=== PATIENT | male | born 1995 | race Caucasian/White ===

== ENCOUNTER 2019-11-23 17:35 | Emergency (ER) | payer MEDICAID, SELFPAY ==
[2019-11-23 18:44] LABS: Absolute Lymphocytes (CBC) 1.3 K/uL (0.7-4.9); Basophils % 0.4 % (0-1.3); Hematocrit 48.6 % (39.6-49.0); Lymphocytes % 17.2 % (15.3-44.8); MPV 8.6 fL (7.6-11.3); RBC Red Blood Cell Count 6.05 M/uL (4.33-5.43)
[2019-11-23 18:47] LABS: Protime INR 1.09
[2019-11-23 18:51] LABS: Urine Blood TRACE (NEG); Urine Glucose NEGATIVE (NEG); Urine Protein NEGATIVE (NEG); Urine Specific Gravity 1.025 (1.005-1.030)
[2019-11-23 18:59] LABS: ALT/SGPT 26 U/L (12-78); AST/SGOT 17 U/L (15-37); Albumin 5.2 g/dL (3.4-5.0); Alkaline Phosphatase 91 U/L (45-117); BUN Blood Urea Nitrogen 15 mg/dL (7-18); Bicarbonate 29 mmol/L (21-32); Bilirubin Direct 0.4 mg/dL (0-0.2); Glucose Level 115 mg/dL (74-106); Magnesium 2.3 mg/dL (1.8-2.4); NT PRO-BNP 6 pg/mL (<125); Potassium 3.9 mmol/L (3.5-5.1); Protein, Total 9.2 g/dL (6.4-8.2); Sodium Level 138 mmol/L (136-145); Troponin (Emerg Dept Use Only) < 0.02 ng/mL (0.0-0.045)
[2019-11-23 19:07] LABS: Barbiturates NEGATIVE (NEGATIVE); Benzodiazepines NEGATIVE (NEGATIVE); Cocaine NEGATIVE (NEGATIVE); METHAMPHETAM NEGATIVE (NEGATIVE); Methadone NEGATIVE (NEGATIVE); Opiates NEGATIVE (NEGATIVE); Phencyclidine NEGATIVE (NEGATIVE); THC Cannibis NEGATIVE (NEGATIVE)
--- NOTE | 2019-11-23 19:10 | RAD REPORT ---
EXAM DESCRIPTION: RAD - Chest Single View - 11/23/2019 6:29 pm CLINICAL HISTORY: CHEST PAIN Chest pain. COMPARISON: No comparisons FINDINGS: Portable technique limits examination quality. The lungs are grossly clear. The heart is normal in size. No displaced fractures. IMPRESSION: No acute intrathoracic process suspected.
--- NOTE | 2019-11-23 19:12 | EDPHYS ---
Physician Documentation [facility] Name: Jeffy More Age: 23 yrs Sex: Male : 1995 Arrival Date: 11/23/2019 Time: 17:37 Bed 25 Private MD: SHANTANU Physician Mathew Cox HPI: 11/22 18:47 This 23 yrs old Male presents to ER via Ambulatory with complaints of Chest adebayo Pain. 18:47 The patient or guardian reports chest pain that is located primarily in the anterior adebayo chest wall, bilaterally. The pain does not radiate. Associated signs and symptoms: The patient has no apparent associated signs or symptoms. The chest pain is described as a pressure. Duration: The patient or guardian reports multiple episodes, with no pattern. Modifying factors: The symptoms are alleviated by nothing. the symptoms are aggravated by nothing. Severity of pain: At its worst the pain was mild in the emergency department the pain is unchanged. The patient has not experienced similar symptoms in the past. Historical: - Allergies: 17:47 PENICILLINS; iw - Home Meds: 17:47 None [Active]; iw - PMHx: 17:47 None; iw - PSHx: 17:47 None; iw - Immunization history:: Adult Immunizations not up to date. - Social history:: Smoking status: Patient denies any tobacco usage or history of. - Family history:: not pertinent. ROS: 18:47 Constitutional: Negative for fever, chills, and weight loss, Eyes: Negative for injury, adebayo pain, redness, and discharge, ENT: Negative for injury, pain, and discharge, Neck: Negative for injury, pain, and swelling, Respiratory: Negative for shortness of breath, cough, wheezing, and pleuritic chest pain, Abdomen/GI: Negative for abdominal pain, nausea, vomiting, diarrhea, and constipation, Back: Negative for injury and pain, : Negative for injury, bleeding, discharge, and swelling, MS/Extremity: Negative for injury and deformity, Skin: Negative for injury, rash, and discoloration, Neuro: Negative for headache, weakness, numbness, tingling, and seizure, Psych: Negative for depression, anxiety, suicide ideation, homicidal ideation, and hallucinations, Allergy/Immunology: Negative for hives, rash, and allergies, Endocrine: Negative for neck swelling, polydipsia, polyuria, polyphagia, and marked weight changes, Hematologic/Lymphatic: Negative for swollen nodes, abnormal bleeding, and unusual bruising. 18:47 Cardiovascular: Positive for chest pain, of the chest. Exam: 18:47 Constitutional: This is a well developed, well nourished patient who is awake, alert, adebayo and in no acute distress. Head/Face: Normocephalic, atraumatic. Eyes: Pupils equal round and reactive to light, extra-ocular motions intact. Lids and lashes normal. Conjunctiva and sclera are non-icteric and not injected. Cornea within normal limits. Periorbital areas with no swelling, redness, or edema. ENT: Nares patent. No nasal discharge, no septal abnormalities noted. Tympanic membranes are normal and external auditory canals are clear. Oropharynx with no redness, swelling, or masses, exudates, or evidence of obstruction, uvula midline. Mucous membranes moist. Neck: Trachea midline, no thyromegaly or masses palpated, and no cervical lymphadenopathy. Supple, full range of motion without nuchal rigidity, or vertebral point tenderness. No Meningismus. Chest/axilla: Normal chest wall appearance and motion. Nontender with no deformity. No lesions are appreciated. Cardiovascular: Regular rate and rhythm with a normal S1 and S2. No gallops, murmurs, or rubs. Normal PMI, no JVD. No pulse deficits. Respiratory: Lungs have equal breath sounds bilaterally, clear to auscultation and percussion. No rales, rhonchi or wheezes noted. No increased work of breathing, no retractions or nasal flaring. Abdomen/GI: Soft, non-tender, with normal bowel sounds. No distension or tympany. No guarding or rebound. No evidence of tenderness throughout. Back: No spinal tenderness. No costovertebral tenderness. Full range of motion. Skin: Warm, dry with normal turgor. Normal color with no rashes, no lesions, and no evidence of cellulitis. MS/ Extremity: Pulses equal, no cyanosis. Neurovascular intact. Full, normal range of motion. Neuro: Awake and alert, GCS 15, oriented to person, place, time, and situation. Cranial nerves II-XII grossly intact. Motor strength 5/5 in all extremities. Sensory grossly intact. Cerebellar exam normal. Normal gait. Psych: Awake, alert, with orientation to person, place and time. Behavior, mood, and affect are within normal limits. 18:47 Musculoskeletal/extremity: DVT Exam: No signs of deep vein thrombosis. no pain, no swelling, no tenderness, negative Homans' sign noted on exam, no appreciated bluish discoloration, no erythema, no increased warmth. 18:50 Cardiovascular: Rate: normal, Rhythm: regular, Pulses: no pulse deficits are adebayo appreciated, Heart sounds: normal, normal S1and S2, no S3 or S4, no murmur, no rub, no gallop, Edema: is not appreciated, JVD: is not appreciated. Vital Signs: 17:45 BP 145 / 85; Pulse 100; Resp 16; Temp 98.4; Pulse Ox 100% on R/A; Weight 66.68 kg; iw Height 5 ft. 7 in. (170.18 cm); 18:49 BP 124 / 81; Pulse 86; Resp 21; Temp 98.1; Pulse Ox 100% ; Weight 65.77 kg; Height 5 aj1 ft. 7 in. (170.18 cm); Pain 0/10; 20:08 BP 116 / 72; Pulse 76; Resp 18; Pulse Ox 97% on R/A; aj1 18:49 Body Mass Index 22.71 (65.77 kg, 170.18 cm) [facility] MDM: 17:54 Patient medically screened. [facility] 18:49 Data reviewed: vital signs, nurses notes, lab test result(s), EKG, radiologic studies, adebayo plain films. 11/22 17:52 Order name: Basic Metabolic Panel; Complete Time: 19:10 [facility] 11/22 17:52 Order name: CBC with Diff; Complete Time: 18:59 [facility] 11/22 17:52 Order name: LFT's; Complete Time: 19:10 [facility] 11/22 17:52 Order name: Magnesium; Complete Time: 19:10 [facility] 11/22 17:52 Order name: NT PRO-BNP; Complete Time: 19:10 [facility] 11/22 17:52 Order name: PT-INR; Complete Time: 18:59 [facility] 11/22 17:52 Order name: Troponin (emerg Dept Use Only); Complete Time: 19:10 [facility] 11/22 17:52 Order name: XRAY Chest (1 view) [facility] 11/22 17:52 Order name: EKG; Complete Time: 17:53 [facility] 11/22 17:52 Order name: Cardiac monitoring; Complete Time: 17:52 [facility] 11/22 17:55 Order name: UDS; Complete Time: 19:10 [facility] 11/22 18:44 Order name: Urine Dipstick--Ancillary (enter results); Complete Time: 18:59 ms 11/22 17:52 Order name: EKG - Nurse/Tech; Complete Time: 17:52 [facility] 11/22 17:52 Order name: IV Saline Lock; Complete Time: 18:44 [facility] 11/22 17:52 Order name: Labs collected and sent; Complete Time: 17:52 [facility] 11/22 17:52 Order name: O2 Per Protocol; Complete Time: 17:53 [facility] 11/22 17:52 Order name: O2 Sat Monitoring; Complete Time: 17:53 [facility] Administered Medications: 19:10 Drug: NS 0.9% 1000 ml Route: IV; Rate: 1 bolus; Site: right antecubital; [facility] 20:08 Follow up: IV Status: Completed infusion; IV Intake: 1000ml [facility] 19:20 Drug: Aspirin 162 mg Route: PO; aj1 20:07 Follow up: Response: No adverse reaction [facility] Disposition: 11/23/19 19:11 Discharged to Home. Impression: Chest pain, unspecified. - Condition is Stable. - Discharge Instructions: Nonspecific Chest Pain, Nonspecific Chest Pain, [id number], Aspirin and Your Heart. - Prescriptions for Pepcid 20 mg Oral Tablet - take 1 tablet by ORAL route every 12 hours for 10 days; 20 tablet. - Medication Reconciliation Form, Thank You Letter, Antibiotic Education, Prescription Opioid Use form. - Follow up: Private Physician; When: 2 - 3 days; Reason: Recheck today's complaints, Continuance of care, Re-evaluation by your physician. Follow up: Parveen Pérez; When: 2 - 3 days; Reason: Recheck today's complaints, Re-evaluation by your physician. - Problem is new. - Symptoms have improved. Signatures: Dispatcher [employer] EDAlejandra Velasco RN RN aj1 Mathew Cox MD MD cha Williams, Irene, RN RN iw Corrections: (The following items were deleted from the chart) 20:16 19:11 11/23/2019 19:11 Discharged to Home. Impression: Chest pain, unspecified. aj1 Condition is Stable. Discharge Instructions: Nonspecific Chest Pain, Nonspecific Chest Pain, [id number], Aspirin and Your Heart. Prescriptions for Pepcid 20 mg Oral Tablet - take 1 tablet by ORAL route every 12 hours for 10 days; 20 tablet. and Forms are Medication Reconciliation Form, Thank You Letter, Antibiotic Education, Prescription Opioid Use. Follow up: Private Physician; When: 2 - 3 days; Reason: Recheck today's complaints, Continuance of care, Re-evaluation by your physician. Follow up: Parveen Pérez; When: 2 - 3 days; Reason: Recheck today's complaints, Re-evaluation by your physician. Problem is new. Symptoms have improved. adebayo
--- NOTE | 2019-11-23 19:12 | ER ---
Nurse's Notes [facility] Name: Jeffy More Age: 23 yrs Sex: Male : 1995 Arrival Date: 11/23/2019 Time: 17:37 Bed 25 Private MD: Diagnosis: Chest pain, unspecified Presentation: 11/22 17:45 Chief complaint: Patient states: left sided chest pain X 5-6 days, denies cough, iw intermittent all day, feels like pressure. Coronavirus screen: The patient has NOT traveled to [place] in the past 14 days. Proceed with normal triage procedures. Ebola Screen: Patient negative for fever greater than or equal to 101.5 degrees Fahrenheit, and additional compatible Ebola Virus Disease symptoms Patient denies exposure to infectious person. Patient denies travel to an Ebola-affected area in the 21 days before illness onset. No symptoms or risks identified at this time. Initial Sepsis Screen: Does the patient meet any 2 criteria? No. Patient's initial sepsis screen is negative. Does the patient have a suspected source of infection? No. Patient's initial sepsis screen is negative. Risk Assessment: Do you want to hurt yourself or someone else? Patient reports no desire to harm self or others. 17:45 Method Of Arrival: Ambulatory iw 17:45 Acuity: ANDRÉS 3 iw Historical: - Allergies: 17:47 PENICILLINS; iw - Home Meds: 17:47 None [Active]; iw - PMHx: 17:47 None; iw - PSHx: 17:47 None; iw - Immunization history:: Adult Immunizations not up to date. - Social history:: Smoking status: Patient denies any tobacco usage or history of. - Family history:: not pertinent. Screenin:35 Abuse screen: Denies threats or abuse. Nutritional screening: No deficits noted. aj1 Tuberculosis screening: No symptoms or risk factors identified. Fall Risk. Fall Risk None identified. Assessment: 18:18 Pain: Complains of pain in chest Pain began 2-3 days ago. Cardiovascular: Reports chest aj1 pain, Denies nausea, palpitations, shortness of breath, syncope, vomiting, Heart tones S1 S2 present Patient's skin is warm and dry. Rhythm is regular Chest pain is located in left anterior. 18:18 General: Appears in no apparent distress. comfortable, Behavior is calm, cooperative, aj1 appropriate for age. Pain: Pain radiates to back Quality of pain is described as pressure, Pain began Is episodic, Aggravated by eating. Neuro: Level of Consciousness is awake, alert, obeys commands, Oriented to person, place, time, situation. Respiratory: Airway is patent Respiratory effort is even, unlabored, Respiratory pattern is regular, symmetrical. GI: No signs and/or symptoms were reported involving the gastrointestinal system. : No signs and/or symptoms were reported regarding the genitourinary system. EENT: No signs and/or symptoms were reported regarding the EENT system. Derm: No signs and/or symptoms reported regarding the dermatologic system. Musculoskeletal: No signs and/or symptoms reported regarding the musculoskeletal system. 19:19 Reassessment: Patient appears in no apparent distress at this time. No changes from aj1 previously documented assessment. Patient and/or family updated on plan of care and expected duration. Pain level reassessed. Patient is alert, oriented x 3, equal unlabored respirations, skin warm/dry/pink. 20:08 Reassessment: Patient appears in no apparent distress at this time. No changes from aj1 previously documented assessment. Patient and/or family updated on plan of care and expected duration. Pain level reassessed. Patient is alert, oriented x 3, equal unlabored respirations, skin warm/dry/pink. Vital Signs: 17:45 BP 145 / 85; Pulse 100; Resp 16; Temp 98.4; Pulse Ox 100% on R/A; Weight 66.68 kg; iw Height 5 ft. 7 in. (170.18 cm); 18:49 BP 124 / 81; Pulse 86; Resp 21; Temp 98.1; Pulse Ox 100% ; Weight 65.77 kg; Height 5 aj1 ft. 7 in. (170.18 cm); Pain 0/10; 20:08 BP 116 / 72; Pulse 76; Resp 18; Pulse Ox 97% on R/A; aj1 18:49 Body Mass Index 22.71 (65.77 kg, 170.18 cm) aj1 Vitals: 19:35 Cardiac Rhythm Assessment Sinus rhythm. aj1 ED Course: 17:37 Patient arrived in ED. as 17:42 Mathew Cox MD is Attending Physician. adebayo 17:47 Triage completed. iw 17:47 Arm band placed on. iw 17:48 Thad, Alejandra, RN is Primary Nurse. aj1 18:20 No apparent distress. aj1 18:20 No provider procedures requiring assistance completed. Inserted saline lock: 20 gauge aj1 in right antecubital area, using aseptic technique. 18:20 Patient maintains SpO2 saturation greater than 95% on room air. aj1 18:34 XRAY Chest (1 view) In Process Unspecified. EDNY 19:11 Parveen Pérez MD is Referral Physician. [facility] [place] 19:35 Patient has correct armband on for positive identification. Placed in gown. Bed in low aj1 position. Call light in reach. Side rails up X 1. ice skater on. Pulse ox on. NIBP on. 20:08 IV discontinued, intact, bleeding controlled, No redness/swelling at site. Pressure aj1 dressing applied. Administered Medications: 19:10 Drug: NS 0.9% 1000 ml Route: IV; Rate: 1 bolus; Site: right antecubital; aj1 20:08 Follow up: IV Status: Completed infusion; IV Intake: 1000ml aj1 19:20 Drug: Aspirin 162 mg Route: PO; aj1 20:07 Follow up: Response: No adverse reaction aj1 Intake: 20:08 IV: 1000ml; Total: 1000ml. aj1 Outcome: 19:11 Discharge ordered by . [facility] 20:16 Discharged to home ambulatory. aj1 20:16 Condition: good 20:16 Discharge instructions given to patient, Instructed on discharge instructions, follow up and referral plans. Demonstrated understanding of instructions, follow-up care. 20:16 Patient left the ED. aj1 Signatures: Dispatcher [employer] [facility] Alejandra Oneil, SUSI RN aj1 Mathew Cox MD MD cha Martinez, Amelia as Christina Kay RN RN iw Corrections: (The following items were deleted from the chart) 19:46 18:18 Pain: Complains of pain in chest Pain began 2-3 days ago. aj1 aj1 19:46 18:18 Cardiovascular: Heart tones S1 S2 present Rhythm is regular Chest pain is located aj1 in left anterior aj1 19:46 18:44 General: Appears in no apparent distress. comfortable, Behavior is calm, aj1 cooperative, appropriate for age, aj1 19:46 18:44 Pain: Pain radiates to back Quality of pain is described as pressure, Pain began aj1 Is episodic, Aggravated by eating, aj1 18:44 Neuro: Level of Consciousness is awake, alert, obeys commands, Oriented to aj1 person, place, time, situation, aj1 18:49 Respiratory: Airway is patent Respiratory effort is even, unlabored, Respiratory aj1 pattern is regular, symmetrical, aj1 18:49 GI: No signs and/or symptoms were reported involving the gastrointestinal system. aj1 aj1 18:49 : No signs and/or symptoms were reported regarding the genitourinary system. aj1aj1 18:49 EENT: No signs and/or symptoms were reported regarding the EENT system. aj1 aj1 18:49 Derm: No signs and/or symptoms reported regarding the dermatologic system. aj1 aj1 18:49 Musculoskeletal: No signs and/or symptoms reported regarding the musculoskeletal aj1 system. aj1
[2019-11-23] MEDS ORDERED: NA CHLORIDE 0.9% 1,000 ML ONE (19:13)
[2019-11-23] MEDS ORDERED: ASPIRIN EC 81 MG TAB PO ONE (19:13)
[2019-11-23 20:33] VITALS: TEMP 98.1
[2019-11-23 20:34] VITALS: BP 116/72; O2SAT 97
--- NOTE | 2019-11-24 15:34 | EKG ---
Test Date: 2019-11-23 Test Time: 17:56:36 Chairman Ceo: MEASUREMENT RESULTS: Intervals: Rate: 78 MA: 132 QRSD: 88 QT: 350 QTc: 399 [place]: P: 54 MA: 132 QRS: 60 T: 50 INTERPRETIVE STATEMENTS: Normal sinus rhythm Normal ECG No previous ECG available for comparison Electronically Signed On 11-24-19 15:33:14 NEWSPAPER CLIPPER by Chris Palacios
== END 2019-11-23 20:16 | disposition home or self-care (01) ==
LOC: ER 17:35
DX: R07.9 Chest pain, unspecified (principal); Z88.0 Allergy status to penicillin
CPT/HCPCS: 36415; 71045; 80048; 80076; 80307; 81003; 83735; 83880; 84484; 85025; 85610; 93005; 96360; 99285; J7030

== ENCOUNTER 2020-03-12 14:46 | Emergency (ER) | payer SELFPAY ==
--- NOTE | 2020-03-12 16:53 | EDPHYS ---
Physician Documentation [facility] Name: Jeffy More Age: 24 yrs Sex: Male : 1995 Arrival Date: 03/12/2020 Time: 14:49 Bed 11 Private MD: ED Physician Kory Matias HPI: 03/12 16:48 This 24 yrs old Male presents to ER via Ambulatory with complaints of kb Numbness Of Arm, Arm Pain. 16:48 The patient or guardian complains of "kind of numb". The complaints affect the left kb arm. Context: The problem was sustained at home, resulted from unknown cause. Onset: The symptoms/episode began/occurred 3 day(s) ago. Treatment prior to arrival includes: no previous treatment. Modifying factors: The symptoms are alleviated by nothing. the symptoms are aggravated by nothing. Associated signs and symptoms: Pertinent positives: numbness, tingling, Pertinent negatives: decreased range of motion, deformity, erythema, fever, nausea, pain, swelling, vomiting, warmth, weakness. Severity of symptoms: At their worst the symptoms were mild, in the emergency department the symptoms are unchanged. The patient has not experienced similar symptoms in the past. The patient has not recently seen a physician. Pt reports a "weird, kind of numb feeling, but not all the way numb" in his left arm. States it has been going on for 3 days. Denies injury or trauma. States his anxiety started getting to him about it so he wanted to get it checked out. States he had some chest pain before that went into his arm and he's heard that is bad to he had it checked before and everything was fine. . Historical: - Allergies: 14:56 PENICILLINS; ll1 - PSHx: 14:56 None; ll1 - Immunization history:: Flu vaccine is not up to date. - Social history:: Smoking status: Patient/guardian denies using tobacco, Patient uses alcohol, only on a social basis. Patient/guardian denies using street drugs. ROS: 16:48 Constitutional: Negative for fever, chills, and weight loss, Cardiovascular: Negative kb for chest pain, palpitations, and edema, Respiratory: Negative for shortness of breath, cough, wheezing, and pleuritic chest pain, Abdomen/GI: Negative for abdominal pain, nausea, vomiting, diarrhea, and constipation, Back: Negative for injury and pain, Skin: Negative for injury, rash, and discoloration, Neuro: Negative for headache, weakness, numbness, tingling, and seizure. 16:48 MS/extremity: Positive for tingling, of the left arm. Exam: 16:48 Constitutional: This is a well developed, well nourished patient who is awake, alert, kb and in no acute distress. Head/Face: Normocephalic, atraumatic. Chest/axilla: Normal chest wall appearance and motion. Nontender with no deformity. No lesions are appreciated. Cardiovascular: Regular rate and rhythm with a normal S1 and S2. No gallops, murmurs, or rubs. Normal PMI, no JVD. No pulse deficits. Respiratory: Lungs have equal breath sounds bilaterally, clear to auscultation and percussion. No rales, rhonchi or wheezes noted. No increased work of breathing, no retractions or nasal flaring. Abdomen/GI: Soft, non-tender, with normal bowel sounds. No distension or tympany. No guarding or rebound. No evidence of tenderness throughout. Skin: Warm, dry with normal turgor. Normal color with no rashes, no lesions, and no evidence of cellulitis. MS/ Extremity: Pulses equal, no cyanosis. Neurovascular intact. Full, normal range of motion. Neuro: Awake and alert, GCS 15, oriented to person, place, time, and situation. Cranial nerves II-XII grossly intact. Motor strength 5/5 in all extremities. Sensory grossly intact. Cerebellar exam normal. Normal gait. 16:52 ECG was reviewed by the Attending Physician. Vital Signs: 14:55 BP 149 / 77; Pulse 83; Resp 17; Temp 98.2; Pulse Ox 99% ; Pain 1/10; ll1 MDM: 16:11 Patient medically screened. kb 16:46 Data reviewed: vital signs, nurses notes. Data interpreted: Pulse oximetry: on room air kb is 99 %. Interpretation: normal. Counseling: I had a detailed discussion with the patient and/or guardian regarding: the historical points, exam findings, and any diagnostic results supporting the discharge/admit diagnosis, the need for outpatient follow up, a family practitioner, to return to the emergency department if symptoms worsen or persist or if there are any questions or concerns that arise at home. 03/12 16:36 Order name: EKG; Complete Time: 16:36 kb 03/12 16:36 Order name: EKG - Nurse/Tech; Complete Time: 16:53 kb EC:52 Rate is 68 beats/min. Rhythm is regular. QRS [place] is Normal. MT interval is normal at kb 126 msec. QRS interval is normal at 84 msec. QT interval is normal at 366 msec. Administered Medications: No medications were administered Disposition: 03/13 08:36 Co-signature as Attending Physician, Kory Matias MD I agree with the assessment and kdr plan of care. Disposition: 03/12/20 16:53 Discharged to Home. Impression: Radiculopathy. - Condition is Stable. - Discharge Instructions: Cervical Radiculopathy, [id number]. - Medication Reconciliation Form, Thank You Letter, Antibiotic Education, Prescription Opioid Use form. - Follow up: Emergency Department; When: As needed; Reason: Worsening of condition. Follow up: Private Physician; When: 2 - 3 days; Reason: Recheck today's complaints, Continuance of care, Re-evaluation by your physician. Signatures: Alaina Erickson, MIDDLE STITCHER-C MIDDLE STITCHER-Ckb Kory Matias MD MD [facility] Malgorzata Bradford RN RN Romeo Contreras RN RN ll1 Corrections: (The following items were deleted from the chart) 03/12 17:29 16:53 03/12/2020 16:53 Discharged to Home. Impression: Radiculopathy. Condition is hb Stable. Discharge Instructions: Cervical Radiculopathy, [id number]. Forms are Medication Reconciliation Form, Thank You Letter, Antibiotic Education, Prescription Opioid Use. Follow up: Emergency Department; When: As needed; Reason: Worsening of condition. Follow up: Private Physician; When: 2 - 3 days; Reason: Recheck today's complaints, Continuance of care, Re-evaluation by your physician. kb
--- NOTE | 2020-03-12 16:53 | ER ---
Nurse's Notes [facility] Name: Jeffy More Age: 24 yrs Sex: Male : 1995 Arrival Date: 03/12/2020 Time: 14:49 Bed 11 Private MD: Diagnosis: Radiculopathy Presentation: 03/12 14:55 Chief complaint: Patient states: Left arm numbness for 3 days. States he had 1 day of ll1 pain to left arm 2 weeks ago. No trauma or falls. Coronavirus screen: Proceed with normal triage. Patient denies a cough. Patient denies shortness of breath or difficulty breathing. Patient denies measured and/or subjective temperature greater than 100.4F prior to today's visit. Patient denies travel on a cruise ship or to a country the [facility] currently lists as an affected area. Patient denies contact with known and/or suspected case of COVID-19. Ebola Screen: Patient denies travel to an Ebola-affected area in the 21 days before illness onset. Initial Sepsis Screen: Does the patient meet any 2 criteria? No. Patient's initial sepsis screen is negative. Risk Assessment: Do you want to hurt yourself or someone else? Patient reports no desire to harm self or others. Onset of symptoms was March 10, 2020. 14:55 Method Of Arrival: Ambulatory ll1 14:55 Acuity: ANDRÉS 4 ll1 Historical: - Allergies: 14:56 PENICILLINS; ll1 - PSHx: 14:56 None; ll1 - Immunization history:: Flu vaccine is not up to date. - Social history:: Smoking status: Patient/guardian denies using tobacco, Patient uses alcohol, only on a social basis. Patient/guardian denies using street drugs. Screenin:10 Abuse screen: Denies threats or abuse. Denies injuries from another. Nutritional hb screening: No deficits noted. Tuberculosis screening: No symptoms or risk factors identified. Fall Risk None identified. Assessment: 17:10 General: Appears in no apparent distress. Behavior is calm, cooperative. Pain: Pain hb currently is 2 out of 10 on a pain scale. Neuro: Level of Consciousness is awake, alert, obeys commands, Oriented to person, place, time, situation. Cardiovascular: Capillary refill < 3 seconds Patient's skin is warm and dry. Respiratory: Airway is patent Respiratory effort is even, unlabored, Respiratory pattern is regular, symmetrical. GI: No signs and/or symptoms were reported involving the gastrointestinal system. : No signs and/or symptoms were reported regarding the genitourinary system. EENT: No signs and/or symptoms were reported regarding the EENT system. Derm: Skin is pink, warm \T\ dry. Musculoskeletal: Reports numbness and tingling of left arm. Vital Signs: 14:55 BP 149 / 77; Pulse 83; Resp 17; Temp 98.2; Pulse Ox 99% ; Pain 1/10; ll1 ED Course: 14:49 Patient arrived in ED. bp1 14:56 Triage completed. ll1 14:57 Arm band placed on. ll1 16:06 Alaina Erickson FNP-C is [facility]. kb 16:06 Kory Matias MD is Attending Physician. kb 16:43 Malgorzata Bradford, RN is Primary Nurse. hb 16:53 EKG done, by ED staff, reviewed by Alaina PARKER. jp3 17:10 Patient has correct armband on for positive identification. Call light in reach. hb 17:29 No provider procedures requiring assistance completed. Patient did not have IV access hb during this emergency room visit. Administered Medications: No medications were administered Outcome: 16:53 Discharge ordered by MD. kb 17:29 Discharged to home ambulatory, with family. hb 17:29 Condition: stable 17:29 Discharge instructions given to patient, Instructed on discharge instructions, follow up and referral plans. medication usage, Demonstrated understanding of instructions, follow-up care, medications. 17:29 Patient left the ED. hb Signatures: Alaina Erickson FNP-C FNP-Ckb Baxter, Heather, RN RN hb Aurelio Bernstein jp3 Romeo Contreras RN RN ll1 Juliana Cavanaugh bp1
[2020-03-12 17:48] VITALS: BP 149/77; TEMP 98.2; O2SAT 99
--- NOTE | 2020-03-13 05:54 | EKG ---
Test Date: 2020-03-12 Test Time: 16:50:40 Patient Service Technician Pst: KIERAN MEASUREMENT RESULTS: Intervals: Rate: 68 NV: 126 QRSD: 84 QT: 366 QTc: 389 [place]: P: 44 NV: 126 QRS: 64 T: 54 INTERPRETIVE STATEMENTS: Normal sinus rhythm with sinus arrhythmia Normal ECG Compared to ECG 11/23/2019 17:56:36 No significant changes Electronically Signed On 03-13-20 05:53:37 CDT by Parveen Pérez
== END 2020-03-12 17:29 | disposition home or self-care (01) ==
LOC: ER 14:46
DX: M54.12 Radiculopathy, cervical region (principal); Z88.0 Allergy status to penicillin
CPT/HCPCS: 93005; 99283